=== PATIENT | male | born 1975 | race Caucasian/White ===

== ENCOUNTER → 2021-05-29 06:45 | Outpatient (CLI) | payer BC, SELFPAY ==
[2014-04-02 07:00] VITALS: BMI 23.1
[2021-05-29 07:35] LABS: Absolute Lymphocyte Count 1.71 X10^3/uL (0.83-4.51); Absolute Neutrophil Count 3.1 X10^3/uL (2.0-7.7); Basophil# 0.04 X10^3/uL; Basophil% 0.7 % (0-1); Eosinophil# 0.15 X10^3/uL; Eosinophils% 2.8 % (0-5); Hematocrit 43.9 % (40-54); Hemoglobin 14.1 g/dL (13.0-16.5); Lymphocyte # 1.71 X10^3/ul (0.83-4.51); Lymphocyte % 31.8 % (19-41); Mean Corp Hgb Conc 32.1 g/dL (32-36); Mean Corpuscular Hgb 29.9 pg (27.0-32.0); Mean Corpuscular Volume 93.2 fL (80-94); Mean Platelet Vol. 10.4 fl (6.2-12.0); Monocyte# 0.36 X10^3/uL; Monocyte% 6.7 % (0-10); NRBC Flagged by Analyzer 0 % (0-5); Neutrophil # 3.09 X10^3/uL (2.7-7.7); Neutrophil % 57.6 % (47-70); Platelet Count 227 K/mm3 (150-450); RBC Distribution Width SD 44.6 fl (35.1-43.9); Red Blood Count 4.71 M/mm3 (4.6-6.2); White Blood Count 5.4 K/mm3 (4.4-11.0)
[2021-05-29 07:38] LABS: Color, Urine Yellow (Yellow); Glucose, Dipstick Normal (Normal); Ketone-Dipstick Negative (Negative); Leukocyte Esterase-Dipstick Negative /ul (Negative); Nitrite-Dipstick Negative (Negative); Occult Blood-Urine Negative /ul (Negative); Protein-Dipstick Negative (Negative); Specific Gravity, Urine 1.015 (1.002-1.030); Urine Bilirubin Dipstick Negative (Negative); Urine Clarity Clear (Clear); Urine Urobilinogen Normal (Normal)
[2021-05-29 08:13] LABS: ALB/GLOB Ratio 1.2 RATIO (0.9-2.4); AST(SGOT) 31 U/L (15-37); Alanine Aminotransfer ALT/SGPT 54 U/L (16-61); Albumin, Serum 4.1 g/dL (3.2-5.0); Alkaline Phosphatase 68 U/L (45-117); Anion Gap 8 (5-15); BUN 25 mg/dL (7-18); BUN/Creat Ratio 24.5 RATIO (10-20); Chloride 105 mmol/L (98-107); Cholesterol 442 mg/dL (200); Creatinine, Serum 1.02 mg/dL (0.70-1.30); EST Glomerular Filtration Rate 83 mL/min (>60); Est Glom Filt Rate - Afr Amer 101 mL/min (>60); Globulin 3.4 g/dL (2.2-4.2); Glucose 85 mg/dL (74-106); High Density Lipoprotein 51 mg/dL; Potassium 3.9 mmol/L (3.5-5.1); Protein, Total 7.5 g/dL (6.4-8.2); Sodium Level 140 mmol/L (136-145); Triglycerides 135 mg/dL; Very Low Density Lipoprotein 27 mg/dL (5-40)
[2021-05-29 08:15] LABS: BNP,B-Type NATRIURETIC PEPTIDE 15.1 pg/mL (0-100)
[2021-06-01 03:06] LABS: Red Blood Cell Count Test/G6PD 4.65 x10E6/uL (4.14-5.80)
[2021-06-01 07:35] LABS: G6PD Quant Test 262 (127-427)
== END ==
PROVIDERS: PCP Internal Medicine; Referring Provider Nurse Practitioner Family; Visit Provider Nurse Practitioner Family
DX: R53.82 Chronic fatigue, unspecified (principal); M62.81 Muscle weakness (generalized)
CPT/HCPCS: 36415; 80053; 80061; 81002; 82306; 82955; 83880; 85025

== ENCOUNTER 2022-03-06 07:29 | Outpatient (CLI) | payer BC, SELFPAY ==
[2022-03-06 08:24] LABS: Hematocrit 44.3 % (40-54); Hemoglobin 14.9 g/dL (13.0-16.5); Mean Corp Hgb Conc 33.6 g/dL (32-36); Mean Corpuscular Hgb 30.3 pg (27.0-32.0); Mean Platelet Vol. 9.9 fl (6.2-12.0); Platelet Count 230 K/mm3 (150-450); RBC Distribution Width SD 42.6 fl (35.1-43.9); Red Blood Count 4.92 M/mm3 (4.6-6.2); White Blood Count 4.8 K/mm3 (4.4-11.0)
[2022-03-06 08:53] LABS: Hemoglobin A1c 5.4 % (3.8-5.6)
[2022-03-06 08:54] LABS: Progesterone Level 0.57 ng/mL (See Comment); T3 Total - Triiodothyronine 1.07 ng/mL (0.6-1.81); Vitamin B12 885 pg/mL (211-911); Vitamin D,25 Hydroxy 77.4 ng/mL
[2022-03-06 09:27] LABS: ALB/GLOB Ratio 1.3 RATIO (0.9-2.4); AST(SGOT) 16 U/L (15-37); Alanine Aminotransfer ALT/SGPT 33 U/L (16-61); Albumin, Serum 4.3 g/dL (3.2-5.0); Alkaline Phosphatase 53 U/L (45-117); Anion Gap 2 (5-15); BUN 24 mg/dL (7-18); BUN/Creat Ratio 23.1 RATIO (10-20); CRP < 2.90 mg/L (0.0-3.0); Calcium,Total 9.3 mg/dL (8.5-10.1); Chloride 105 mmol/L (98-107); Cholesterol 391 mg/dL (200); Creatinine, Serum 1.04 mg/dL (0.70-1.30); EST Glomerular Filtration Rate 81 mL/min (>60); Est Glom Filt Rate - Afr Amer 98 mL/min (>60); Estradiol 36.8 pg/mL; Follicle Stimulating Hormone 4.6 mIU/mL; Globulin 3.3 g/dL (2.2-4.2); Glucose 91 mg/dL (74-106); High Density Lipoprotein 47 mg/dL; Iron 60 ug/dL (65-175); Magnesium 2.1 mg/dL (1.6-2.6); Potassium 4.3 mmol/L (3.5-5.1); Prolactin 8.7 ng/mL; Protein, Total 7.6 g/dL (6.4-8.2); Sodium Level 136 mmol/L (136-145); T4 Free Direct 0.96 ng/dL (0.76-1.46); T4 Total, Thyroxin 9.1 ug/dL (4.5-12.1); Thyroid Stim Hormone (TSH) 2.27 uIU/mL (0.358-3.74); Triglycerides 174 mg/dL; Very Low Density Lipoprotein 35 mg/dL (5-40)
[2022-03-06 14:05] LABS: CRP, High Sensitivity Cardiac 0.34 mg/L
[2022-03-11 12:08] LABS: Insulin Like Growth Factor 130 ng/mL (81-263); Testosterone, % Free 1.67 % (1.50-4.20)
[2022-03-11 12:35] LABS: Sex Hormone-binding Globulin 59.8 nmol/L (16.5-55.9); Testosterone, Total 641 ng/dL (264-916)
== END 2022-03-06 23:59 | disposition home or self-care (01) ==
PROVIDERS: PCP Internal Medicine; Referring Provider Nurse Practitioner Family; Visit Provider Nurse Practitioner Family
DX: R53.82 Chronic fatigue, unspecified (principal); M62.81 Muscle weakness (generalized); R68.82 Decreased libido; Z12.5 Encounter for screening for malignant neoplasm of prostate
CPT/HCPCS: 36415; 80053; 80061; 82306; 82533; 82607; 82627; 82670; 82746; 83001; 83002; 83036; 83090; 83540; 83735; 84144; 84146; 84153; 84270; 84305; 84402; 84403; 84436; 84439; 84443; 84480; 85027; 86140; 86141; 82626; G0103

== ENCOUNTER → 2022-05-11 | Outpatient (CLI) | payer BC, SELFPAY ==
[2022-05-11 12:49] LABS: Insulin 3.3 mU/L (2.6-37.6)
[2022-05-11 13:49] LABS: Anion Gap 7 (5-15); BUN 24 mg/dL (7-18); BUN/Creat Ratio 20.7 RATIO (10-20); Calcium,Total 9.4 mg/dL (8.5-10.1); Chloride 107 mmol/L (98-107); Creatinine, Serum 1.16 mg/dL (0.70-1.30); EST Glomerular Filtration Rate 72 mL/min (>60); Est Glom Filt Rate - Afr Amer 87 mL/min (>60); Glucose 88 mg/dL (74-106); Potassium 5.2 mmol/L (3.5-5.1); Sodium Level 139 mmol/L (136-145)
== END | disposition home or self-care (01) ==
LOC: BIMLAB 08:38
PROVIDERS: PCP Internal Medicine; Referring Provider Internal Medicine; Visit Provider Internal Medicine
DX: E88.81 Metabolic syndrome and other insulin resistance (principal)
CPT/HCPCS: 36415; 80048; 83525

== ENCOUNTER → 2022-12-19 | Outpatient (CLI) | payer BC, SELFPAY ==
[2022-12-19 08:53] LABS: Cholesterol 274 mg/dL (200); High Density Lipoprotein 45 mg/dL; Triglycerides 116 mg/dL; Very Low Density Lipoprotein 23 mg/dL (5-40)
== END | disposition home or self-care (01) ==
PROVIDERS: PCP Internal Medicine; Visit Provider Internal Medicine
DX: E78.5 Hyperlipidemia, unspecified (principal)
CPT/HCPCS: 36415; 80061

== ENCOUNTER → 2023-05-24 | Outpatient (CLI) | payer BC, SELFPAY ==
[2023-05-24 10:42] LABS: Vitamin D,25 Hydroxy 105.6 ng/mL
[2023-05-24 10:49] LABS: Cholesterol 256 mg/dL (200); High Density Lipoprotein 45 mg/dL; PSA,Total - Annual Screen 1.09 ng/mL (0.00-4.00); Thyroid Stim Hormone (TSH) 3.33 uIU/mL (0.358-3.74); Triglycerides 93 mg/dL; Very Low Density Lipoprotein 19 mg/dL (5-40)
[2023-05-28 09:08] LABS: Testosterone, % Free 2.56 % (1.50-4.20); Testosterone, Free 15.46 ng/dL (5.00-21.00); Testosterone, Total 604 ng/dL (264-916)
== END | disposition home or self-care (01) ==
PROVIDERS: PCP Internal Medicine; Referring Provider Internal Medicine; Visit Provider Internal Medicine
DX: E55.9 Vitamin D deficiency, unspecified (principal); Z12.5 Encounter for screening for malignant neoplasm of prostate; N52.9 Male erectile dysfunction, unspecified; E78.5 Hyperlipidemia, unspecified
CPT/HCPCS: 36415; 80061; 82306; 84153; 84402; 84403; 84443; G0103

== ENCOUNTER → 2023-09-25 | Outpatient (CLI) | payer BC, SELFPAY ==
[2023-09-25 08:03] LABS: Absolute Neutrophil Count 2.5 X10^3/uL (2.0-7.7); Basophil# 0.07 X10^3/uL; Basophil% 1.3 % (0-1); Eosinophil# 0.25 X10^3/uL; Eosinophils% 4.7 % (0-5); Hematocrit 44.5 % (40-54); Hemoglobin 14.2 g/dL (13.0-16.5); Lymphocyte % 39.5 % (19-41); Mean Corp Hgb Conc 31.9 g/dL (32-36); Mean Corpuscular Hgb 29.4 pg (27.0-32.0); Mean Corpuscular Volume 92.1 fL (80-94); Mean Platelet Vol. 9.8 fl (6.2-12.0); Monocyte# 0.36 X10^3/uL; Monocyte% 6.8 % (0-10); NRBC Flagged by Analyzer 0 % (0-5); Neutrophil # 2.52 X10^3/uL (2.7-7.7); Neutrophil % 47.3 % (47-70); Platelet Count 258 K/mm3 (150-450); RBC Distribution Width CV 12.7 % (11.6-14.6); RBC Distribution Width SD 43.1 fl (35.1-43.9); Red Blood Count 4.83 M/mm3 (4.6-6.2); White Blood Count 5.3 K/mm3 (4.4-11.0)
[2023-09-25 08:48] LABS: ALB/GLOB Ratio 1.4 RATIO (0.9-2.4); AST(SGOT) 22 U/L (15-37); Alanine Aminotransfer ALT/SGPT 23 U/L (16-61); Albumin, Serum 4.3 g/dL (3.2-5.0); Alkaline Phosphatase 72 U/L (45-117); Anion Gap 4 (5-15); BUN 18 mg/dL (7-18); BUN/Creat Ratio 14.1 RATIO (10-20); Chloride 106 mmol/L (98-107); Creatinine, Serum 1.28 mg/dL (0.70-1.30); EST Glomerular Filtration Rate 64 mL/min (>60); Est Glom Filt Rate - Afr Amer 77 mL/min (>60); Globulin 3.1 g/dL (2.2-4.2); Glucose 90 mg/dL (74-106); Potassium 4.5 mmol/L (3.5-5.1); Protein, Total 7.4 g/dL (6.4-8.2); Sodium Level 139 mmol/L (136-145); Thyroid Stim Hormone (TSH) 2.01 uIU/mL (0.358-3.74)
[2023-09-25 08:57] LABS: Hemoglobin A1c 5.2 % (3.8-5.6)
[2023-09-27 08:38] LABS: Vitamin D,25 Hydroxy 76.5 ng/mL
[2023-09-27 12:08] LABS: CHOLESTEROL TOTAL 219 mg/dL (100-199); HDL-C 53 mg/dL (>39); HDL-P TOTAL 35.7 umol/L (>=30.5); INSULIN RESISTANCE SCORE 40 (<=45); LDL SIZE 21.4 nm (>20.5); LDL-C (NIH CALC) 154 mg/dL (0-99); LDL-P 1482 nmol/L (<1000); SMALL LDL-P 592 nmol/L (<=527); TRIGLYCERIDES 66 mg/dL (0-149)
== END | disposition home or self-care (01) ==
LOC: LAB 07:24
PROVIDERS: PCP Internal Medicine; Referring Provider Internal Medicine; Visit Provider Internal Medicine
DX: Z00.00 Encounter for general adult medical examination without abnormal findings (principal); E55.9 Vitamin D deficiency, unspecified; E78.5 Hyperlipidemia, unspecified
CPT/HCPCS: 36415; 80053; 80061; 82306; 83036; 83704; 84443; 85025

== ENCOUNTER → 2025-08-14 | Outpatient (CLI) | payer SELFPAY ==
--- NOTE | 2025-08-14 12:49 | STE_ITS ---
Reason For Study Reason For Study: CHEST PAIN Stress Results Protocol: [facility] Protocol Maximum Predicted HR: 170 bpm Target HR: 145 bpm % Maximum Predicted HR: 94 % DurationHeart Rate Stage (mm:ss) (bpm) BP Comment BASELINE 47 114/70 STAGE 1 3:00 86 160/80 STAGE 2 3:00 83 162/82 STAGE 3 3:00 100 168/84 STAGE 4 3:00 126 190/90 STAGE 5 2:30 160 196/98SOB, HEAVIER BREATHING RECOVERY 60 140/80 Stress Duration: 14:30 mm:ss Maximum Stress HR: 160 bpm Baseline Echocardiogram Findings Stress Echo Wall motion Data Resting WM Intermediate WM Stress WM ECHO/Stress Test Echo w/o Contrast Interpretation Summary Exercise stress echo. 49-year-old man with a history of hyperlipidemia. Resting EKG demonstrates sinus bradycardia with a rate of 51 bpm. Resting blood pressure is 114/70 mmHg. The patient exercised according to regular [facility] protocol for total duration of 14 minutes and 30 seconds. The maximum heart rate was 162 bpm which was 95% of maximum. In heart rate the maximum workload was 17 .5 metabolic equivalents. At rest there were no ST or T wave changes noted suggest ischemia and at peak exercise upslop ing ST changes were noted which did not meet the criteria for ischemia. No clinical angina was noted the test was termi nated due to target heart rate achieved and leg fatigue. The peak blood pressure was 196/98 with a peak rate-pressure p roduct of 31,300. Stress echocardiogram. The resting echocardiogram demonstrated an ejection frac tion of 55% the patient exercised and at peak exercise there was thickening of all patel reduction in the ventricular ca vity size peaking of ejection fraction is 60%. No wall motion abnormalities were noted. Conclusion: Exercise stress echocardiogram with no EKG or wall motion abnormality suggestiv e of ischemia. Ordering Physician: Peterson Cleveland Referring Physician: Peterson Cleveland Performed By: Jassi Medeiros RCS
== END | disposition home or self-care (01) ==
LOC: CVS 12:45
PROVIDERS: PCP Internal Medicine; Referring Provider Internal Medicine Cardiovascular Disease; Visit Provider Internal Medicine Cardiovascular Disease
DX: R07.9 Chest pain, unspecified (principal)
CPT/HCPCS: 93017; 93350